=== PATIENT | female | born 1995 | race Two or more races ===

== ENCOUNTER 2021-02-09 14:11 | Emergency (ER) | payer SELFPAY ==
[~2021-02-09] VITALS: Ht 162.6 cm; Wt 50.0 kg
[2021-02-09 15:17] VITALS: BP 120/78
== END 2021-02-09 16:21 | disposition home or self-care (01) ==
LOC: ER 15:35
DX: Z00.00 Encounter for general adult medical examination without abnormal findings (principal); Z59.0 Homelessness
CPT/HCPCS: 99283

== ENCOUNTER 2021-02-09 23:02 | Emergency (ER) | payer SELFPAY ==
[~2021-02-09] VITALS: Ht 162.6 cm; Wt 59.0 kg
[2021-02-09 23:04] VITALS: BP 122/86
[2021-02-10 00:51] LABS: BASOPHILS % 0.7 % (0.0-2.0); EOSINOPHILS % 1.8 % (0.0-5.0); HEMATOCRIT. 30.5 % (36.0-48.0); HEMOGLOBIN. 10.3 g/dL (12.0-16.0); LYMPHOCYTES % 26.4 % (20.0-50.0); MEAN CORPUSCULAR HEMOGLOBIN 26.8 pg (28.0-32.0); MEAN CORPUSCULAR VOLUME 79.4 fL (81.0-99.0); MEAN PLATELET VOLUME 7.5 fl (7.4-10.4); NEUTROPHILS % 58.1 % (40.0-76.0); PLATELET 460 x1000/uL (130-400); RED BLOOD CELL COUNT 3.84 mill/uL (4.2-5.4); RED CELL DISTRIBUTION WIDTH 16.2 % (11.6-14.6)
[2021-02-10 00:56] LABS: CHLORIDE 105 mEq/L (98-107)
[2021-02-10 00:58] LABS: HCG SCREEN NEGATIVE
[2021-02-10 01:01] LABS: ETHANOL BLOOD < 10 mg/dL
== END 2021-02-10 03:03 | disposition left against medical advice (07) ==
LOC: ER 23:02
DX: F32.9 Major depressive disorder, single episode, unspecified (principal)
CPT/HCPCS: 36415; 80053; 80307; 80320; 80329; 84703; 85025; 99283; G0480

== ENCOUNTER 2021-12-07 01:21 | Emergency (ER) | payer SELFPAY ==
[~2021-12-07] VITALS: Ht 165.1 cm; Wt 59.0 kg
[2021-12-07 01:33] VITALS: BP 104/66
== END 2021-12-07 01:53 | disposition home or self-care (01) ==
LOC: ER 01:21
DX: Z00.00 Encounter for general adult medical examination without abnormal findings (principal); Z59.00 Homelessness unspecified; F19.10 Other psychoactive substance abuse, uncomplicated; E11.9 Type 2 diabetes mellitus without complications; F32.9 Major depressive disorder, single episode, unspecified
CPT/HCPCS: 99283